=== PATIENT | female | born 1970 | race Caucasian/White ===

== ENCOUNTER 2019-01-23 11:03 | Emergency (ER) | payer MEDICAID ==
[~2019-01-23] VITALS: Ht 157.5 cm; Wt 79.4 kg
[2019-01-23 11:15] VITALS: Ht 157.5 cm; Wt 79.4 kg
[2019-01-23 12:08] VITALS: BP 132/61
== END 2019-01-23 12:08 | disposition home or self-care (01) ==
LOC: ED 11:03
DX: M79.644 Pain in right finger(s) (principal)